=== PATIENT | male | born 2000 | race Two or more races ===

== ENCOUNTER → 2024-06-17 | Emergency (ER) | payer OTHER ==
[~2024-06-17] VITALS: Ht 180.3 cm; Wt 165.6 kg
[~2024-06-17] MED LIST: KETO10TA2 PO; KETOROLAC TROMETHAMINE 60 MG VIAL IM ONE; NORFLEX100MG PO; ORPHENADRINE CITRATE 30 MG/ML AMPUL IM ONE; ORPHENADRINE CITRATE 30 MG/ML AMPUL ONE
== END | disposition home or self-care (01) ==
LOC: ER 10:24
DX: M79.18 Myalgia, other site (principal); R07.81 Pleurodynia
CPT/HCPCS: 71111; 73521; 96372; 99283; J1885; J2360

== ENCOUNTER 2024-11-01 09:01 | Emergency (ER) | payer OTHER ==
[~2024-11-01] VITALS: Ht 180.3 cm; Wt 162.8 kg
[~2024-11-01 09:01] MED LIST changes: -KETOROLAC TROMETHAMINE 60 MG VIAL IM ONE; -ORPHENADRINE CITRATE 30 MG/ML AMPUL IM ONE; -ORPHENADRINE CITRATE 30 MG/ML AMPUL ONE
[2024-11-01] MEDS ORDERED: ONDANSETRON HCL 2 MG/ML VIAL IV ONE (09:45)
[2024-11-01] MEDS ORDERED: FAMOtidine 10 MG/ML (4ML VIAL) IV ONE (09:45)
[2024-11-01] MEDS ORDERED: FAMOTIDINE/PF 20 MG/2 ML VIAL ONE (10:04)
[2024-11-01] MEDS ORDERED: ONDANSETRON HCL 2 MG/ML VIAL ONE (10:05)
[2024-11-01 10:34] LABS: BASO % 1.4 % (0.1-1.2); EOS # 0.16 (0.04-0.54); EOS % 1.6 % (0.7-7.0); HEMATOCRIT 41.1 % (40.1-51.0); LYMPH # 6.56 (1.18-3.74); LYMPH % 65.2 % (19.3-53.1); MEAN CORPUSCULAR HEMOGLOBIN 24.3 pg (25.6-32.2); MONO # 0.51 (0.24-0.82); MONO % 5.1 % (4.7-12.5); NEUT # 2.63 (1.56-6.13); NEUT % 26.1 % (34.0-71.1); PLATELET COUNT 258 K/uL (163-369); RED BLOOD COUNT 5.34 M/uL (4.63-6.08); RED CELL DISTRIBUTION WIDTH 14.7 % (11.6-14.4)
[2024-11-01 12:32] LABS: ALBUMIN 2.9 gm/dL (3.4-5.0); BILIRUBIN TOTAL 0.72 mg/dL (0.3-1.2); CALCIUM 8.3 mg/dL (8.5-10.1); CREATININE SERUM 1.26 mg/dL (0.70-1.30); GFR 69.73; GLOBULINA 4.3 G/DL (2.4-3.5); POTASSIUM 3.64 mEq/L (3.5-5.1); TOTAL PROTEIN 7.2 gm/dL (6.4-8.2)
[2024-11-01] MEDS ORDERED: PROBIOTIC1 EAC2 PO (12:58)
[2024-11-01] MEDS ORDERED: ZOFRAN8 MG PO (12:58)
[2024-11-01] MEDS ORDERED: PROTONIX40 MG PO (12:58)
== END 2024-11-01 14:34 | disposition home or self-care (01) ==
LOC: ER 09:01
PROVIDERS: General Practice
DX: K52.9 Noninfective gastroenteritis and colitis, unspecified (principal); R11.0 Nausea